=== PATIENT | female | born 1960 | race Caucasian/White ===

== ENCOUNTER → 2017-05-03 13:28 | Outpatient (CLI) | payer MEDICAID, SELFPAY ==
[2017-05-03 14:27] LABS: Basophils # 0.1 K/mm3 (0-0.2); Basophils % 0.7 % (0.1-2.0); Eosinophils # 0.1 K/mm3 (0.0-0.4); Eosinophils % 1.5 % (0.1-12.0); Hematocrit 40.6 % (37.0-47.0); Hemoglobin 13.2 g/dL (12.2-16.2); Lymphocytes # 1.3 K/mm3 (0.7-4.5); Lymphocytes % 20.1 K/mm3 (10-50); Mean Corpuscular HGB Conc 32.6 g/dL (31.8-35.4); Mean Corpuscular Volume 88.7 fl (81-99); Monocytes # 0.2 K/mm3 (0.1-1.0); Monocytes % 3.4 % (1.7-9.3); Neutrophils # 4.8 K/mm3 (1.8-7.8); Neutrophils % 74.2 % (37.0-80.0); Platelet Count 256 K/mm3 (142-424); Red Blood Count 4.57 M/mm3 (4.20-5.40); Red Cell Distribution Width 13.7 % (11.5-17.5); White Blood Count 6.5 K/mm3 (4.8-10.8)
[2017-05-03 15:43] LABS: Alanine Aminotransferase 37 U/L (12-78); Albumin/Globulin Ratio 1.2 (1.1-1.8); Alkaline Phosphatase 72 U/L (46-116); Anion Gap 14.4 mEq/L (5-15); Aspartate Amino Transferase 15 U/L (15-37); Bilirubin,Total 0.6 mg/dL (0.2-1.0); Blood Urea Nitrogen 10 mg/dL (7-18); Calcium 8.9 mg/dL (8.5-10.1); Carbon Dioxide 27 mmol/L (21.0-32.0); Chloride 102 mmol/L (98-107); Chol/HDL Ratio 4.1 (1-3.5); Cholesterol 252 mg/dL (140-200); Creatinine,Serum 0.83 mg/dL (0.55-1.02); Estimated Glomerular Filt Rate 71 ml/min (>60); GFR (African American) 86 ML/MIN (>60); Globulin 3.3 gm/dl (1.3-3.2); Glucose 95 mg/dL (74-106); HDL Cholesterol 61 mg/dL (29-89); LDL Cholesterol 171 mg/dL (0-130); Potassium 4.4 mmoL/L (3.5-5.1); Sodium 139 mmol/L (136-145); Thyroid Stimulating Hormone 0.77 uIU/ml (0.358-3.740); Total Protein,Serum 7.3 gm/dL (6.4-8.2); Triglycerides 102 mg/dL (30-200); VLDL Cholesterol 20 mg/dL (0-40)
== END ==
PROVIDERS: PCP Internal Medicine Adolescent Medicine; Visit Provider Internal Medicine Adolescent Medicine
DX: E78.5 Hyperlipidemia, unspecified (principal); F31.74 Bipolar disorder, in full remission, most recent episode manic
CPT/HCPCS: 36415; 80053; 80061; 84443; 85025

== ENCOUNTER 2022-09-08 12:45 | Emergency (ER) | payer BC, SELFPAY ==
[2022-09-08 12:45] VITALS: BP 138/57; PULSE 84; RESP 16; TEMP 36.4; O2SAT 96; BMI 38.9
[2022-09-08 13:00] VITALS: BP 131/69; PULSE 82; RESP 20; O2SAT 96
--- NOTE | 2022-09-08 13:02 | HMH.EDGENADL ---
Discharge Plan Disposition Patient Disposition: Home, Self-Care Condition: Fair Prescriptions Prescriptions: New dicyclomine 20 mg tablet 20 mg PO QID PRN (Reason: abdominal pain) Qty: 20 0RF ondansetron 4 mg tablet,disintegrating 4 mg PO TID PRN (Reason: nausea and vomiting) 5 Days Qty: 15 0RF Referrals Follow up/Referrals: Provider,Referral, MD [Primary Care Provider] - See instructions Clinical Impressions Clinical Impression: Gastroenteritis, Food poisoning Instructions Patient Instructions: Clear Liquid Diet, DI for Viral Gastroenteritis -- Adult Discharge ED Provider: Darrel Byrd General Adult HPI General Chief complaint: Nausea/Vomiting/Diarrhea Stated complaint: Fever nausea vomiting diarrhea Time Seen by Provider: 09/08/22 12:55 History of Present Illness HPI narrative: This is a 62-year-old female presents to the emergency room with acute onset vomiting and diarrhea that began this morning. Patient stated that for started she had crampy abdominal pain but now. Patient states she has vomited 3 times and had 3 loose bowel movements. No melena hematochezia or hematemesis no recent antibiotic use. No dysuria pyuria hematuria patient with subjective fevers but no definitive temperature. Related Data Previous Rx's Medication Instructions Recorded dicyclomine 20 mg tablet 20 mg PO QID PRN abdominal pain 09/08/22 #20 tabs ondansetron 4 mg disintegrating 4 mg PO TID PRN nausea and 09/08/22 tablet vomiting 5 days #15 tabs Allergies Allergy/AdvReac Type Severity Reaction Status Date / Time From LORTAB Allergy Unknown NA-NAUSEA/V Uncoded 03/08/17 14:39 OMITING Pseudoephedrine Allergy Unknown STEEN Uncoded 03/08/17 14:39 [facility] Disclaimer: The information contained in this section may have been updated after the patient was seen, as this information can be updated by other users. Social History Smoking Status: Never smoker alcohol intake: former current occupational status: retired Travel in the last 8 weeks: None ROS Obtained: Yes All systems reviewed & no additional complaints except as documented Skin no rash or lesions HEENT no runny nose sore throat Pulmonary no cough or shortness of breath Cardiovascular no chest pain pressure heaviness GI see HPI no dysuria pyuria hematuria Musculoskeletal no neck or back pain Endocrine no polydipsia polyuria or polyphasia Psych no SI or HI The rest of the systems were reviewed and found to be negative Physical Exam Narrative Physical exam: Skin: Warm and dry HEENT: Normocephalic atraumatic extract muscles are intact pupils are equal and reactive to light Neck: Supple nontender Lungs: Clear to auscultation Heart: Regular rate and rhythm Abdomen: NABS soft nontender Extremities: No clubbing cyanosis or edema Neurologic: No unilateral weakness or numbness Lymphatic: No cervical or inguinal adenopathy Musculoskeletal: No tenderness of the dorsal or lumbar spine Psych: No SI or HI General General appearance: alert Respiratory Respiratory exam: Present normal lung sounds bilaterally Cardiovascular Cardiovascular exam: Present regular rate Neurological Exam Neurological exam: Present alert Medical Decision Making Son Inquiry Pt receiving controlled substance: No Vital Signs: 09/08/22 12:45 09/08/22 13:00 09/08/22 13:31 Temperature 97.6 F Temperature Source Oral Pulse Rate 82 61 Pulse Rate [Left Radial] 84 Respiratory Rate 16 20 18 Blood Pressure 131/69 117/58 L Blood Pressure [Right Arm] 138/57 L Blood Pressure Mean 93 86 Blood Pressure Mean [Right Arm] 84 Blood Pressure Source [Right Arm] Automatic Cuff Blood Pressure Position [Right Arm] Sitting 02 Sat by Pulse Oximetry 96 96 96 Oxygen Delivery Method Room Air Lab Data Lab Results 09/08/22 13:13: WBC 7.5, RBC 4.91, Hgb 13.4, Hct 41.3, MCV 84.1, MCH 27.3, MCHC 32.4, RDW 13.8, Plt Count 280, MPV 7.9, Neut %
[2022-09-08 13:25] LABS: Basophils % 0.4 % (0.1-2.0); Eosinophils # 0.1 K/mm3 (0.0-0.4); Hematocrit 41.3 % (37.0-47.0); Hemoglobin 13.4 g/dL (12.2-16.2); Lymphocytes # 0.8 K/mm3 (0.7-4.5); Lymphocytes % 10.7 % (10-50); Mean Corpuscular HGB Conc 32.4 g/dL (31.8-35.4); Mean Corpuscular Hemoglobin 27.3 pg (27.0-31.2); Mean Corpuscular Volume 84.1 fl (81-99); Mean Platelet Volume 7.9 fl (7.4-10.4); Monocytes # 0.3 K/mm3 (0.1-1.0); Monocytes % 3.3 % (1.7-9.3); Neutrophils # 6.3 K/mm3 (1.8-7.8); Neutrophils % 84.6 % (37.0-80.0); Platelet Count 280 K/mm3 (142-424); Red Blood Count 4.91 M/mm3 (4.20-5.40); Red Cell Distribution Width 13.8 % (11.5-17.5); White Blood Count 7.5 K/mm3 (4.8-10.8)
[2022-09-08 13:31] VITALS: BP 117/58; PULSE 61; RESP 18; O2SAT 96
--- NOTE | 2022-09-08 13:31 | PC.NURSE ---
ROUNDED ON PATIENT, PATIENT GIVEN BLANKET NO OTHER NEEDS AT THIS TIME
[2022-09-08 13:34] LABS: Alanine Aminotransferase 47 U/L (12-78); Albumin/Globulin Ratio 1.3 (1.1-1.8); Alkaline Phosphatase 98 U/L (38-126); Anion Gap 13.9 mEq/L (5-15); Aspartate Amino Transferase 36 U/L (14-36); Bilirubin,Total 0.6 mg/dl (0.2-1.3); Blood Urea Nitrogen 16 mg/dl (7-17); Calcium 8.4 mg/dl (8.4-10.2); Carbon Dioxide 28 mmol/L (22.0-30.0); Chloride 101 mmol/L (98-107); Creatinine Clearance Estimated 107 mL/min (50-200); Estimated Glomerular Filt Rate 73 ml/min (>60); GFR (African American) 88 ML/MIN (>60); Glucose 117 mg/dl (74-100); Lactic Acid 1.4 mmol/L (0.7-2.1); Lipase 19 U/L (23-300); Potassium 3.9 mmoL/L (3.5-5.1); Sodium 139 mmol/L (136-145)
--- NOTE | 2022-09-08 14:24 | PC.NURSE ---
PATIENT ASSISTED TO BATHROOM, URINE COLLECTED AND SENT TO LAB
[2022-09-08 14:27] LABS: Microscopic, Urine URINE MICROSCOPIC (MICROSCOPIC)
[2022-09-08 14:31] LABS: Appearance,Urine CLEAR (Clear); Bilirubin,Urine Negative (Negative); Blood, Urine Negative (Negative); Color,Urine YELLOW (Yellow); Glucose,Urine (UA) Negative (Negative); Ketones,Urine Negative (Negative); Leukocyte Esterase,Urine Negative (Negative); Nitrate,Urine Negative (Negative); Protein,Urine Negative (Negative); Specific Gravity, Urine 1.015 (1.005-1.030); Urobilinogen,Urine 0.2 EU/dl (0.2)
[2022-09-08 15:03] VITALS: BP 117/58; PULSE 61; RESP 18; TEMP 36.6
[2022-09-08 15:06] LABS: Bacteria,Urine Trace /lpf; Squamous Epithelial Cell,Urine Occasional #/hpf (0-5); WBC,Urine Occasional #/hpf (0-3)
== END 2022-09-08 15:05 | disposition home or self-care (01) ==
PROVIDERS: Emergency Provider Emergency Medicine
DX: K52.9 Noninfective gastroenteritis and colitis, unspecified (principal); R11.2 Nausea with vomiting, unspecified; A05.9 Bacterial foodborne intoxication, unspecified
CPT/HCPCS: 80053; 81001; 83605; 83690; 85025; 96361; 96374; 99284; J2405

== ENCOUNTER 2024-04-30 03:30 | Emergency (ER) | payer BC, SELFPAY ==
--- NOTE | 2024-04-30 03:30 | ECG_ITS ---
APPROVED REPORT Exam: Resting ECG HR:79 bpm ECG Measurements Heart Rate 79 AXES HI 161 P 60 QRSd 82 QRS 26 QT 378 T 60 QTc 413 Conclusion SINUS RHYTHM NORMAL ECG Electronically signed by : REGAN OATES, 05/01/2024 06:54:38
[2024-04-30 03:31] VITALS: BP 101/74; PULSE 81; RESP 16; TEMP 36.4; O2SAT 98; BMI 39.1
--- NOTE | 2024-04-30 03:36 | CT_ITS ---
PROCEDURE INFORMATION: Exam: CTA Chest With Contrast Exam date and time: 04/30/2024 3:59 AM Age: 63 years old Clinical indication: Shortness of breath; Additional info: SOA peripheral swelling borderling hypotension TECHNIQUE: Imaging protocol: Computed tomographic angiography of the chest with contrast. Exam focused on the arteries. 3D rendering (Not supervised by radiologist): MIP and/or 3D reconstructed images were created by the technologist. Radiation optimization: All CT scans at this facility use at least one of these dose optimization techniques: automated exposure control; mA and/or kV adjustment per patient size (includes targeted exams where dose is matched to clinical indication); or iterative reconstruction. Contrast material: ISOUVE 370; Contrast volume: 70 ml; Contrast route: INTRAVENOUS (IV); COMPARISON: No relevant prior studies available. FINDINGS: Pulmonary arteries: Normal. No pulmonary emboli. Aorta: Unremarkable. No aortic aneurysm. No aortic dissection. Lungs: Unremarkable. No consolidation. No masses. Pleural spaces: Unremarkable. No pneumothorax. No pleural effusion. Heart: No coronary calcification is noted. . No cardiomegaly. No pericardial effusion. Lymph nodes: Unremarkable. No enlarged lymph nodes. Bones/joints: Unremarkable. No acute fracture. Soft tissues: Unremarkable. IMPRESSION: No evidence of pulmonary embolus or other acute process.
--- NOTE | 2024-04-30 03:38 | ED_ITS ---
Discharge Plan Disposition Patient Disposition: Home, Self-Care Condition: Good Chief Complaint: Shortness of Breath/Dyspnea Prescriptions Prescriptions: No Action dicyclomine 20 mg tablet 20 mg PO QID PRN (Reason: abdominal pain) Qty: 20 0RF ondansetron 4 mg tablet,disintegrating 4 mg PO TID PRN (Reason: nausea and vomiting) 5 Days Qty: 15 0RF Activity Restrictions/Add. Instructions Additional Instructions/Restrictions: You were evaluated in the ER and are appropriate for discharge at this time. Continue home medications as previously prescribed. Make an appointment with your primary care doctor for reevaluation in 1-2 days. Return to the ER with new, worsening, or otherwise concerning symptoms. Clinical Impressions Clinical Impression: Shortness of breath Print Language Print Language: Citizen Of [place] Discharge ED Provider: Timbo Iraheta General Stated Complaint: Short of Air Time Seen by Provider: 04/30/24 03:36 History of Present Illness HPI narrative: 63-year-old female with history of anxiety depression presents to the ER with concerns of shortness of breath. Reportedly she has been experiencing shortness of breath and subjective fever for the last 2 days. She denies cough, congestion, vomiting, diarrhea, headache, dizziness, or other associated symptoms. She does report chest pain earlier yesterday evening but she has not had pain like that in many hours. Patient has no known cardiac or pulmonary problems, she denies any other medical history besides anxiety and depression. She only takes medications for anxiety and depression, no other daily medications. Patient does report her legs have been more swollen than normal. ROS otherwise negative Related Data Home Medications ?Medication ?Instructions ?Recorded ?Confirmed atorvastatin 40 mg tablet 40 mg PO DAILY 04/30/24 04/30/24 naltrexone 50 mg tablet 50 mg PO DAILY 04/30/24 04/30/24 trazodone 50 mg tablet 50 mg PO DAILY 04/30/24 04/30/24 Allergies Allergy/AdvReac Type Severity Reaction Status Date / Time From LORTAB Allergy Unknown NA-NAUSEA/V Uncoded 03/08/17 14:39 OMITING Pseudoephedrine Allergy Unknown STEEN Uncoded 03/08/17 14:39 [facility] Disclaimer: The information contained in this section may have been updated after the patient was seen, as this information can be updated by other users. Social History (Updated 09/08/22 @ 14:50 by Darrel Byrd MD) Smoking Status: Never smoker alcohol intake: former current occupational status: retired Travel in the last 8 weeks: None ROS Obtained: Yes Systems reviewed as appropriate & no additional complaints except as documented Physical Exam General General appearance: alert and obese Head Head exam: atraumatic and normocephalic Eye Eye exam: Present PERRL and EOMI ENT ENT exam: Present mucous membranes moist Neck Neck exam: Present normal inspection and full ROM Chest Chest inspection: Present symmetric chest wall rise Respiratory Respiratory exam: Present normal lung sounds bilaterally and other (Patient is tachypneic but saturating 97 to 99% on room air, good air movement throughout, no adventitious sounds); Absent respiratory distress, wheezes or stridor Cardiovascular Cardiovascular exam: Present regular rate and normal rhythm Abdominal Exam Abdominal exam: Present soft; Absent distention or tenderness Extremities Exam Extremities exam: Present full ROM and edema (Trace lower extremity pitting edema) Neurological Exam Neurological exam: Present alert and oriented X3; Absent motor sensory deficit Psychiatric Psychiatric exam: Present normal affect and normal mood Skin Skin exam: Present warm and dry HEART Score HEART Score HEART Score assessment performed?: Yes History (anamnesis): Slightly suspicious ECG: Normal Age: 45-65 years Risk factors: 1-2 risk factors Troponin: </= normal limit HEART Score: 2 Procedures Miscellaneous Procedure Procedure Performed: Limited Cardiac Ultrasound Indication: Shortness of breath Identified cardiac views: [-Cardiac parasternal long axis] [-Cardiac parasternal short axis] [-Cardiac apical four-chamber] [-Cardiac subxiphoid] Findings: -Cardiac activity present -Gross wall motion normal -Pericardial effusion absent -Right heart strain absent Impression: Cardiac activity present without wall motion abnormality, no pericardial effusion, no right heart strain Images were saved to permanent archive The study was technically adequate CPT: 97118 This study was performed by me, and I personally interpreted all images/videos. Based on my clinical judgement, these images were adequate and did not necessitate further imaging. Critical Care Critical Care Time Critical Care Time: No Medical Decision Making Medical Records Medical records reviewed: Yes I reviewed the patient's medical records. MR Comment: The only other previous encounter within our system was in 2022 when patient was evaluated for vomiting and diarrhea. She was discharged on ondansetron and dicyclomine after receiving IV fluids, Zofran, GI cocktail in the ER. Son Inquiry Pt receiving controlled substance: No Response Orders (Tests/Meds): ORDERS Category Date Time Status CT angio chest PE protocol Stat Cat Scan 04/30/24 03:36 Ordered BNP [NT Pro Brain Natriuretic Pep.] Stat Lab 04/30/24 03:37 Ordered CBC w/Auto Diff [Complete Blood Count Auto Diff] Stat Lab 04/30/24 03:36 Ordered CMP [Comprehensive Metabolic Panel] Stat Lab 04/30/24 03:36 Ordered PT INR [Prothrombin Time INR] Stat Lab 04/30/24 03:36 Ordered Rapid PCR Covid and Flu A/B Stat Lab 04/30/24 03:36 Ordered Trop I [Troponin I] Stat Lab 04/30/24 03:36 Ordered Troponin I Q3H Lab 04/30/24 06:45 Ordered Troponin I Q3H Lab 04/30/24 09:45 Ordered ECG Request Stat Y 04/30/24 03:36 Ordered MDM Narrative Medical Decision Narrative: In summary, this 63-year-old female with comorbidities described in the HPI presents to the emergency department today with shortness of breath, subjective fevers. On initial evaluation patient's blood pressure 101/74, no tachycardia, tachypneic but saturating 96 to 99% on room air with good air movement and no adventitious sounds, patient does have peripheral edema, no other obvious abnormalities on exam. Differential diagnosis includes but is not limited to viral syndrome, pneumonia, pneumothorax, ACS, PE, pleural effusion, fluid overload, heart failure, anxiety, among others. Based on these concerns, I ord ered serum labs, CTA PE, cardiac workup. Patient's obesity does increase her risk of cardiac pathology. ECG personally interpreted demonstrates sinus rhythm, rate 79, normal axis, normal MA and QTc, no STEMI. Patient is well-appearing. She seems to intentionally make her breathing tachypneic when I am in the room, however when I leave the room she is able to carry on a normal conversation and rests comfortably with normal respiratory rate. She is also asking for water. [id number] ultrasound personally performed and interpreted by me is normal. On reassessment patient's blood pressure is 156/99, vitals remained stable with good oxygen saturation on room air. Labs personally reviewed demonstrate normal CBC, CMP with normal electrolytes, good kidney function, AST with trace elevation at 39, nonspecific and nonactionable, PT/INR nonactionable, troponin undetectably low less than 0.01 reassuring in the setting of patient's normal ECG, lack of chest pain, and her duration of symptoms, BNP normal at 68.6. COVID, flu negative. I monitored the patient while she was in CT scan since I was curious about her breathing pattern. Her breathing was completely normal while in CT. I was then able to talk to her son in private who stated that patient had COVID a few years ago as well as a procedure on her leg and dealt with chronic pain for a long time. He reports she developed almost a tic of labored breathing that she is able to control. He states sometimes he has to tell her to stop because she does not realize she is doing it. He describes it as the same breathing pattern with which she presented today. Patient came back from CT breathing very comfortably and was placed back on the monitor with no tachypnea, normal breathing pattern, saturating in the mid to upper 90s. CT imaging personally interpreted demonstrate no large PE, no pleural effusion, no pneumothorax, no infiltrate. See radiology read for final interpretation. Patient has ambulated in the ER with normal vitals and without desaturating. She remained stable, breathing pattern has normalized, blood pressure has remained in the 140s to 150s. I do not believe further intervention is required at this time. She is appropriate for discharge. Patient and family are comfortable with this plan. Patient was given instructions on symptomatic management, follow up instructions, and return precautions for the emergency department. Patient indicated understanding and was discharged in stable condition.
[2024-04-30 03:42] LABS: Coronavirus 19, PCR Not Detected (NotDetected); Influenza A, PCR Not Detected (NotDetected); Influenza B, PCR Not Detected (NotDetected)
--- NOTE | 2024-04-30 03:48 | PC.NURSE ---
Multiple open sores noted on face and arms. Pt hyperventilating Encouraged to slow breathing down Reassured that Oxygen level is above 95%
[2024-04-30 03:51] LABS: Basophils # 0.1 K/mm3 (0-0.2); Basophils % 0.7 % (0.1-2.0); Eosinophils # 0.2 K/mm3 (0.0-0.4); Eosinophils % 2.3 % (0.1-12.0); Hemoglobin 13.2 g/dL (12.2-16.2); Lymphocytes # 2.1 K/mm3 (0.7-4.5); Lymphocytes % 28.5 % (10-50); Mean Corpuscular Hemoglobin 27.9 pg (27.0-31.2); Mean Corpuscular Volume 84.6 fl (81-99); Mean Platelet Volume 9.8 fl (7.4-10.4); Monocytes # 0.5 K/mm3 (0.1-1.0); Monocytes % 6.3 % (1.7-9.3); Neutrophils # 4.5 K/mm3 (1.8-7.8); Neutrophils % 61.8 % (37.0-80.0); Platelet Count 255 K/mm3 (142-424); Red Blood Count 4.73 M/mm3 (4.20-5.40); Red Cell Distribution Width 13.8 % (11.5-17.5); White Blood Count 7.3 K/mm3 (4.8-10.8)
[2024-04-30 03:58] LABS: Chloride 102 mmol/L (98-107); Sodium 138 mmol/L (136-145)
[2024-04-30 04:01] LABS: Alanine Aminotransferase 53 U/L (12-78); Albumin/Globulin Ratio 1.5 (1.1-1.8); Alkaline Phosphatase 118 U/L (38-126); Aspartate Amino Transferase 39 U/L (14-36); Bilirubin,Total 0.5 mg/dl (0.2-1.3); Blood Urea Nitrogen 14 mg/dl (7-17); Calcium 9.1 mg/dl (8.4-10.2); Carbon Dioxide 28 mmol/L (22.0-30.0); Creatinine Clearance Estimated 109 mL/min (50-200); Estimated Glomerular Filt Rate 85 ml/min (>60); GFR (African American) 102 ML/MIN (>60); Globulin 2.6 g/dL (1.3-3.2); Glucose 105 mg/dl (74-100); Total Protein,Serum 6.6 g/dl (6.3-8.2)
[2024-04-30 04:02] VITALS: BP 156/99; PULSE 67; O2SAT 96
[2024-04-30 04:05] LABS: INR 0.85 (0.9-1.1); Prothrombin Time 9.5 seconds (9.2-12.1)
[2024-04-30 04:11] LABS: NT Pro Brain Natriuretic Pep. 68.6 pg/mL (0-125)
[2024-04-30 04:14] LABS: Troponin I < 0.01 ng/ml (0.00-0.034)
[2024-04-30] MEDS: SODIUM CHLORIDE 0.9% 10ML SYR (RAD ONLY) 10 ML IV (04:22)
[2024-04-30] MEDS: IOPAMIDOL-370 (76%);100ML BOTTLE 70 ML IV (04:22)
[2024-04-30] MEDS: 0.9 % SODIUM CHLORIDE 50 ML VIAL 40 ML IV (04:22)
[2024-04-30 04:32] VITALS: BP 146/79; PULSE 65; O2SAT 97
[2024-04-30 04:33] VITALS: BP 141/77; PULSE 65; O2SAT 97
[2024-04-30 04:35] VITALS: BP 141/77; PULSE 71; RESP 18; TEMP 36.7; O2SAT 97
== END 2024-04-30 04:41 | disposition home or self-care (01) ==
PROVIDERS: Emergency Provider Emergency Medicine
DX: R06.02 Shortness of breath (principal); R50.9 Fever, unspecified
CPT/HCPCS: 71275; 80053; 83880; 84484; 85025; 85610; 87636; 93005; 99285; Q9967